=== PATIENT | male | born 1970 | race Caucasian/White ===

== ENCOUNTER 2022-05-09 17:30 | Inpatient (IN) | payer BC ==
[2022-05-09] MEDS ORDERED: SODIUM CHLORIDE 1,000 ML IV SCH (17:45)
[2022-05-09 18:05] LABS: BASO % 0.4 % (0-2.0); HEMATOCRIT 45.2 % (35.4-49); HEMOGLOBIN 15.9 GM/dL (11.7-16.9); LYMPH % 7.7 % (8-40); MCH 31.9 pg (25.7-33.7); MCHC 35.2 g/dl (32.0-35.9); MEAN CELL VOLUME 90.4 fl (80-96); MEAN PLT VOLUME 7.8 fl (7.5-11.1); MONO % 2.3 % (3.8-10.2); NEUT % 89.6 % (42.8-82.8); PLATELET COUNT 171 10^3/uL (134-434); RDW 13.1 % (11.9-15.9); WHITE BLOOD COUNT 9.1 K/mm3 (4.0-10.0)
[2022-05-09 18:11] LABS: INR 1.09 (0.83-1.09); PROTHROMBIN TIME (PATIENT) 12.6 SEC (9.7-13.0)
[2022-05-09] MEDS ORDERED: ONDANSETRON 4 MG/2 ML VIAL IVPUSH ONE (18:26)
[2022-05-09] MEDS ORDERED: THIAMINE HCL 200 MG/2 ML VIAL IVPB ONE ×2 (18:28→18:31)
[2022-05-09] MEDS ORDERED: ONDANSETRON 4 MG/2 ML VIAL ONE (18:31)
[2022-05-09 18:32] LABS: CHLORIDE 106 mmol/L (98-107); SODIUM 136 mmol/L (136-145)
[2022-05-09 18:34] VITALS: BMI 28.7
[2022-05-09] MEDS ORDERED: THIAMINE HCL 200 MG/2 ML VIAL ONE (18:49)
[2022-05-09 18:52] LABS: ALBUMIN 3.9 g/dl (3.4-5.0); ALK PHOS 85 U/L (45-117); ANION GAP 6 MMOL/L (8-16); BILIRUBIN,TOTAL 0.5 mg/dL (0.2-1); BLOOD UREA NITROGEN 18.6 mg/dL (7-18); CALCIUM 8.7 mg/dL (8.5-10.1); CHOLESTEROL 147 mg/dL (50-200); CO2 24 mmol/L (21-32); CREATININE 1.3 mg/dL (0.55-1.3); GLUCOSE,RANDOM 176 mg/dL (74-106); HDL CHOLESTEROL 65 mg/dL (40-60); LDL CHOLESTEROL (ONLY SJRH) 73 mg/dL (5-100); SGOT/AST 15 U/L (15-37); SGPT/ALT 30 U/L (13-61); TOT PROT 6.5 g/dl (6.4-8.2); TRIGLYCERIDES 48 mg/dL (0-150)
[2022-05-09 19:16] LABS: VENOUS BASE EXCESS -2.3 mmol/L (-2-2); VENOUS O2 SATURATION 39.8 % (70-80); VENOUS PH 7.316 (7.310-7.410)
[2022-05-09] MEDS ORDERED: ACETYLCYSTEINE IVPB ONE ×5 (19:54→22:00)
[2022-05-09] MEDS ORDERED: DEXTROSE 5% IVPB ONE ×5 (19:54→22:00)
[2022-05-09] MEDS ORDERED: WATER IVPB ONE ×5 (19:54→22:00)
[2022-05-10] MEDS ORDERED: SODIUM CHLORIDE 1,000 ML IV SCH (02:10)
[2022-05-10] MEDS ORDERED: ACETYLCYSTEINE IVPB ONE ×2 (05:00→22:30)
[2022-05-10] MEDS ORDERED: DEXTROSE 5% IVPB ONE ×2 (05:00→22:30)
[2022-05-10] MEDS ORDERED: WATER IVPB ONE ×2 (05:00→22:30)
[2022-05-10 07:07] LABS: METHADONE, UR NEGATIVE (NEGATIVE)
[2022-05-10 07:08] LABS: COCAINE, UR NEGATIVE (NEGATIVE); OPIATES, URI NEGATIVE (NEGATIVE); PHENCYCLIDINE,URINE NEGATIVE (NEGATIVE); URINE BARBITURATES NEGATIVE (NEGATIVE); URINE BENZODIAZEPINES NEGATIVE (NEGATIVE)
[2022-05-10 07:09] LABS: URINE AMPHETAMINES NEGATIVE (NEGATIVE)
[2022-05-10 07:42] LABS: HEMATOCRIT 43.4 % (35.4-49); HEMOGLOBIN 15.6 GM/dL (11.7-16.9); MCH 32.1 pg (25.7-33.7); MEAN CELL VOLUME 89.1 fl (80-96); MEAN PLT VOLUME 8.1 fl (7.5-11.1); PLATELET COUNT 153 10^3/uL (134-434); RBC 4.86 M/mm3 (4.00-5.60); RDW 13.1 % (11.9-15.9); WHITE BLOOD COUNT 10.9 K/mm3 (4.0-10.0)
[2022-05-10 07:46] LABS: INR 1.34 (0.83-1.09); PROTHROMBIN TIME (PATIENT) 15.5 SEC (9.7-13.0)
[2022-05-10 08:02] LABS: CALCIUM 8.2 mg/dL (8.5-10.1)
[2022-05-10 08:03] LABS: ALBUMIN 3.4 g/dl (3.4-5.0); BLOOD UREA NITROGEN 15.8 mg/dL (7-18); MAGNESIUM 2.2 mg/dL (1.8-2.4)
[2022-05-10 08:06] LABS: CREATININE 1.1 mg/dL (0.55-1.3); PHOSPHOROUS 2.8 mg/dL (2.5-4.9)
[2022-05-10 08:08] LABS: BILIRUBIN,TOTAL 1.2 mg/dL (0.2-1); TOT PROT 5.9 g/dl (6.4-8.2)
[2022-05-10 08:34] LABS: URINE APPEARANCE CLEAR; URINE BILIRUBIN NEGATIVE (NEGATIVE); URINE COLOR YELLOW; URINE GLUCOSE (UA) NEGATIVE (NEGATIVE); URINE KETONE 2+ (NEGATIVE); URINE LEUK ESTERASE NRGATIVE (NEGATIVE); URINE NITRITE NEGATIVE (NEGATIVE); URINE PROTEIN TRACE (NEGATIVE); URINE RBC 109 /uL (0-23.9); URINE UROBILINOGEN 0.2 mg/dL (0.2-1.0)
[2022-05-10 08:35] LABS: EPI CELLS 15 /uL (0-25.1); HYALINE CASTS 2.4 /uL (0-3.1); URINE BACTERIA 566 /uL (0-1359); URINE WBC 2554 /uL (0-25.8)
[2022-05-10] MEDS: ENOXAPARIN NA (PORCINE) 40 MG/0.4 ML DISP.SYRIN SQ SCH (10:28)
[2022-05-10] MEDS: POTASSIUM CHLORIDE TABS 20 MEQ TABLET.ER (FP) PO SCH (11:45)
[2022-05-10 21:42] LABS: INR 1.41 (0.83-1.09); PROTHROMBIN TIME (PATIENT) 16.3 SEC (9.7-13.0)
[2022-05-10 21:59] LABS: CALCIUM 8.1 mg/dL (8.5-10.1)
[2022-05-10 22:00] LABS: ALBUMIN 3.2 g/dl (3.4-5.0); BLOOD UREA NITROGEN 12.6 mg/dL (7-18)
[2022-05-10 22:03] LABS: BILIRUBIN,DIRECT 0.2 mg/dL (0.0-0.2); CREATININE 1.1 mg/dL (0.55-1.3)
[2022-05-10 22:04] LABS: BILIRUBIN,TOTAL 0.6 mg/dL (0.2-1); TOT PROT 5.6 g/dl (6.4-8.2)
[2022-05-11 07:25] LABS: INR 1.31 (0.83-1.09); PROTHROMBIN TIME (PATIENT) 15.2 SEC (9.7-13.0)
[2022-05-11 07:52] LABS: CALCIUM 8.2 mg/dL (8.5-10.1)
[2022-05-11 07:53] LABS: ALBUMIN 3.1 g/dl (3.4-5.0)
[2022-05-11 07:55] LABS: BILIRUBIN,DIRECT 0.2 mg/dL (0.0-0.2)
[2022-05-11 07:56] LABS: CREATININE 0.9 mg/dL (0.55-1.3)
[2022-05-11 07:57] LABS: BILIRUBIN,TOTAL 0.8 mg/dL (0.2-1); TOT PROT 5.4 g/dl (6.4-8.2)
[2022-05-11] MEDS: ENOXAPARIN NA (PORCINE) 40 MG/0.4 ML DISP.SYRIN SQ SCH (09:10)
[2022-05-11] MEDS: POTASSIUM CHLORIDE TABS 20 MEQ TABLET.ER (FP) PO SCH (09:10)
[2022-05-11 13:04] LABS: ALBUMIN 3.1 g/dl (3.4-5.0)
[2022-05-11 13:06] LABS: BILIRUBIN,DIRECT 0.2 mg/dL (0.0-0.2)
[2022-05-11 13:08] LABS: BILIRUBIN,TOTAL 0.6 mg/dL (0.2-1); TOT PROT 5.5 g/dl (6.4-8.2)
[2022-05-11] MEDS ORDERED: WATER IVPB SCH (14:30)
[2022-05-11] MEDS ORDERED: DEXTROSE 5% IVPB SCH (14:30)
[2022-05-11] MEDS ORDERED: ACETYLCYSTEINE IVPB SCH (14:30)
[2022-05-11 16:27] LABS: INR 1.28 (0.83-1.09); PROTHROMBIN TIME (PATIENT) 14.8 SEC (9.7-13.0)
[2022-05-11 16:29] LABS: ACTIVATED PTT 35.2 SECONDS (25.2-36.5)
[2022-05-12 05:51] LABS: HEMATOCRIT 41.4 % (35.4-49); HEMOGLOBIN 14.8 GM/dL (11.7-16.9); MCH 31.8 pg (25.7-33.7); MCHC 35.6 g/dl (32.0-35.9); MEAN CELL VOLUME 89.1 fl (80-96); MEAN PLT VOLUME 8.3 fl (7.5-11.1); PLATELET COUNT 117 10^3/uL (134-434); RBC 4.65 M/mm3 (4.00-5.60); RDW 12.8 % (11.9-15.9); WHITE BLOOD COUNT 8.3 K/mm3 (4.0-10.0)
[2022-05-12 06:19] LABS: INR 1.2 (0.83-1.09); PROTHROMBIN TIME (PATIENT) 13.9 SEC (9.7-13.0)
[2022-05-12 06:22] LABS: ACTIVATED PTT 31.1 SECONDS (25.2-36.5)
[2022-05-12] MEDS: ENOXAPARIN NA (PORCINE) 40 MG/0.4 ML DISP.SYRIN SQ SCH (09:53)
[2022-05-12 11:26] LABS: BLOOD UREA NITROGEN 10.9 mg/dL (7-18); CALCIUM 8.3 mg/dL (8.5-10.1)
[2022-05-12 11:27] LABS: ALBUMIN 3.3 g/dl (3.4-5.0)
[2022-05-12 11:29] LABS: BILIRUBIN,DIRECT 0.2 mg/dL (0.0-0.2)
[2022-05-12 11:30] LABS: CREATININE 0.9 mg/dL (0.55-1.3)
[2022-05-12 11:31] LABS: BILIRUBIN,TOTAL 0.8 mg/dL (0.2-1); TOT PROT 5.8 g/dl (6.4-8.2)
[2022-05-12] MEDS ORDERED: ACETYLCYSTEINE IVPB ONE (14:00)
[2022-05-12] MEDS ORDERED: WATER IVPB ONE (14:00)
[2022-05-12] MEDS ORDERED: DEXTROSE 5% IVPB ONE (14:00)
[2022-05-13 08:55] LABS: BASO % 0.7 % (0-2.0); EOS % 2.7 % (0-4.5); HEMOGLOBIN 14.7 GM/dL (11.7-16.9); LYMPH % 19.3 % (8-40); MCH 31.5 pg (25.7-33.7); MEAN PLT VOLUME 8.6 fl (7.5-11.1); NEUT % 68.3 % (42.8-82.8); PLATELET COUNT 129 10^3/uL (134-434); RBC 4.67 M/mm3 (4.00-5.60); RDW 12.8 % (11.9-15.9); WHITE BLOOD COUNT 7.1 K/mm3 (4.0-10.0)
[2022-05-13 09:00] LABS: ALBUMIN 3.4 g/dl (3.4-5.0); CALCIUM 8.8 mg/dL (8.5-10.1); MAGNESIUM 2.3 mg/dL (1.8-2.4)
[2022-05-13 09:03] LABS: BILIRUBIN,DIRECT 0.3 mg/dL (0.0-0.2); CREATININE 0.8 mg/dL (0.55-1.3); PHOSPHOROUS 2.6 mg/dL (2.5-4.9)
[2022-05-13 09:05] LABS: BILIRUBIN,TOTAL 0.8 mg/dL (0.2-1); TOT PROT 6.1 g/dl (6.4-8.2)
[2022-05-13 09:09] LABS: BLOOD UREA NITROGEN 8.9 mg/dL (7-18)
[2022-05-13] MEDS: ENOXAPARIN NA (PORCINE) 40 MG/0.4 ML DISP.SYRIN SQ SCH (11:18)
[2022-05-13 12:15] VITALS: BP 132/76; PULSE 84; RESP 20; TEMP 98.6
== END 2022-05-13 14:03 | disposition home or self-care (01) | DRG 918 ==
LOC: JER 17:30 → JERBED 20:05 → J4S 05-10 00:21
PROVIDERS: ADMIT Internal Medicine; ATTEND Internal Medicine
DX: T39.1X4A Poisoning by 4-Aminophenol derivatives, undetermined, initial encounter (principal); Y92.89 Other specified places as the place of occurrence of the external cause; F10.20 Alcohol dependence, uncomplicated; R74.01 Elevation of levels of liver transaminase levels; E80.6 Other disorders of bilirubin metabolism
CPT/HCPCS: 0241U-QW; 36415; 70450-TC; 70496-TC; 70498-TC; 70551-TC; 80048; 80053; 80061; 80076; 80307; 81003; 82140; 82550; 82553; 82803; 82962; 83036; 83605; 83735; 84100; 84484; 85025; 85027; 85610; 85730; 86850; 86900; 86901; 93005; 93010; 97161-GP; 99285-25